=== PATIENT | female | born 1975 | race Caucasian/White ===

== ENCOUNTER 2019-01-30 19:01 | Emergency (ER) | payer MEDICAID ==
[~2019-01-30] VITALS: Ht 154.9 cm; Wt 76.2 kg
[2019-01-30 19:46] VITALS: BP 163/93
== END 2019-01-30 21:06 | disposition home or self-care (01) ==
LOC: ER 19:01
DX: L03.011 Cellulitis of right finger (principal); L30.9 Dermatitis, unspecified; I10 Essential (primary) hypertension

== ENCOUNTER 2019-03-18 11:09 | Emergency (ER) | payer MEDICAID ==
[~2019-03-18] VITALS: Ht 152.4 cm; Wt 75.7 kg
--- NOTE | 2019-03-18 11:20 | NUR ---
STREP SW[facility] SENT TO [facility]
[2019-03-18 11:24] VITALS: BP 167/91
== END 2019-03-18 11:41 | disposition home or self-care (01) ==
LOC: ER 11:09
DX: R05 Cough (principal); I10 Essential (primary) hypertension